=== PATIENT | female | born 1980 | race Caucasian/White ===

== ENCOUNTER 2021-07-01 10:39 | Inpatient (IN) | payer OTHER, MEDICAID ==
[2021-07-01] MEDS ORDERED: cefTRIAXone\\ROCEPHIN 2 GM VIAL ONE (11:58)
[2021-07-01] MEDS ORDERED: Azithromycin 500 MG VIAL ONE (11:58)
[2021-07-01] MEDS ORDERED: Ondansetron ODT 4 MG TAB SL PRN (12:00)
[2021-07-01] MEDS ORDERED: Ondansetron PF 4 MG/2 ML Vial IVP PRN (12:00)
[2021-07-01 13:03] LABS: #Lymphocytes 0.5 thou/uL (1.20-3.40); #Monocytes 0.2 thou/uL (0.11-0.59); #Neutrophils 2.7 thou/uL (1.40-6.50); %Eosinophils 0.1 % (0.0-10.0); %Lymphocytes 15.5 % (21.0-51.0); %Monocytes 4.9 % (0.0-10.0); %Neutrophils 78.6 % (42.0-75.0); Hemoglobin 12.7 g/dL (12.0-16.0); Mean Corpuscular HGB CONC 33.9 g/dL (32.0-36.0); Mean Corpuscular Hemoglobin 29.4 pg (27.0-31.0); Mean Corpuscular Volume 86.6 fL (78.0-98.0); Mean Platelet Volume 7.5 fL (7.4-10.4); Platelet Count 163 thou/uL (130-400); RBC Distribution Width 12.7 % (11.5-14.5); Red Blood Cell (RBC) Count 4.33 mill/uL (4.20-5.40); White Blood Cell (WBC) Count 3.4 thou/uL (4.8-10.8)
[2021-07-01 13:37] LABS: BHCG - Serum Negative (NEGATIVE); Pregs Control Background? CLEAR/WHITE (CLR/WHITE); Pregs Control Bar Appear? YES (CONTROL BAR)
[2021-07-01 13:56] LABS: ALT (SGPT) 18 U/L (8-55); AST (SGOT) 17 U/L (5-34); Albumin 3.2 g/dL (3.5-5.0); Alkaline Phosphatase 64 U/L (40-110); Anion Gap 10 mmol/L (10-20); BUN (Urea Nitrogen) 7 mg/dL (7.0-18.7); Bilirubin, Total 0.9 mg/dL (0.2-1.2); Calc. Creatinine Clearance 0 mL/min (70-130); Calcium 7.7 mg/dL (7.8-10.44); Carbon Dioxide 25 mmol/L (22-29); Chloride 107 mmol/L (98-107); Glucose 122 mg/dL (70-105); Lipase 21 U/L (8-78); Potassium 3.1 mmol/L (3.5-5.1); Protein, Total 6.2 g/dL (6.0-8.3); Sodium 139 mmol/L (136-145)
[2021-07-01 14:11] LABS: CK (CPK) Less than 18 U/L (29-168)
[2021-07-01] MEDS ORDERED: Potassium Chloride 20 MEQ TAB ONE (16:35)
[2021-07-01] MEDS ORDERED: Dexamethasone 10 MG in Sodium Chloride 0.9% 50 ML IVPB SCH (18:17)
[2021-07-01] MEDS ORDERED: Ketorolac Tromethamine 30 MG/ML VIAL IVP PRN (18:20)
[2021-07-01] MEDS ORDERED: Fentanyl 100 MCG/2 ML VIAL SLOW IVP PRN (18:20)
[2021-07-01] MEDS ORDERED: GUAIFENESIN SF SOLN 200 MG/10 ML UDCUP PO PRN (18:27)
[2021-07-01] MEDS ORDERED: Albuterol Sulfate 1.25 MG/3 ML NEB EZPAP PRN (18:27)
[2021-07-01] MEDS ORDERED: Dexamethasone 10 MG/ML VIAL SLOW IVP SCH (18:30)
[2021-07-01] MEDS ORDERED: Enoxaparin Sodium 40 MG/0.4 ML SYRINGE SC SCH (18:30)
[2021-07-01] MEDS ORDERED: Morphine 4 MG/ML VIAL SLOW IVP PRN (18:31)
[2021-07-01] MEDS ORDERED: Albuterol 200 PUFF (6.7GM INHALER) INH PRN (18:39)
[2021-07-01] MEDS: Sodium Chloride 0.9% 1,000 ML IV SCH (18:41)
[2021-07-01 19:38] VITALS: BMI 43.8
[2021-07-01] MEDS ORDERED: Pharmacy to Dose REMDESIVIR IVPB PRN (19:53)
[2021-07-01] MEDS: Acetaminophen 325 MG TAB PO PRN (22:09)
[2021-07-01] MEDS: Benzonatate 100 MG CAP PO PRN (22:09)
[2021-07-02] MEDS: Sodium Chloride 0.9% 1,000 ML IV SCH (00:54)
[2021-07-02] MEDS: Benzonatate 100 MG CAP PO PRN (05:18)
[2021-07-02] MEDS: Acetaminophen 325 MG TAB PO PRN (05:19)
[2021-07-02] MEDS ORDERED: FLU VACC QS2021-22(6MOS UP)/PF 60 MCG/0.5 ML SYRINGE IM ONE (09:00)
[2021-07-02] MEDS ORDERED: Enoxaparin Sodium 40 MG/0.4 ML SYRINGE SC SCH (09:00)
[2021-07-02] MEDS ORDERED: Pantoprazole 40 MG VIAL IVP SCH (09:00)
[2021-07-02] MEDS ORDERED: Albuterol 200 PUFF (6.7GM INHALER) INH PRN (09:03)
[2021-07-02 09:34] LABS: #Basophils 0.1 thou/uL (0.0-0.2); #Lymphocytes 0.7 thou/uL (1.20-3.40); #Monocytes 0.2 thou/uL (0.11-0.59); #Neutrophils 2.7 thou/uL (1.40-6.50); %Basophils 1.5 % (0.0-1.0); %Eosinophils 0.1 % (0.0-10.0); %Lymphocytes 19.8 % (21.0-51.0); %Monocytes 5.6 % (0.0-10.0); %Neutrophils 72.9 % (42.0-75.0); Mean Corpuscular HGB CONC 35.2 g/dL (32.0-36.0); Mean Corpuscular Hemoglobin 30.7 pg (27.0-31.0); Mean Corpuscular Volume 87.4 fL (78.0-98.0); Mean Platelet Volume 7.6 fL (7.4-10.4); Platelet Count 179 thou/uL (130-400); RBC Distribution Width 12.5 % (11.5-14.5); Red Blood Cell (RBC) Count 4.24 mill/uL (4.20-5.40); White Blood Cell (WBC) Count 3.7 thou/uL (4.8-10.8)
[2021-07-02 09:49] LABS: Phosphorus 2.2 mg/dL (2.3-4.7)
[2021-07-02] MEDS: Zinc Sulfate 220 MG CAP PO SCH (09:52)
[2021-07-02] MEDS: Multivit, Therapeutic 1 TAB PO SCH (09:52)
[2021-07-02] MEDS: Cholecalciferol 1,000 UNITS (25 MCG) TAB PO SCH (09:52)
[2021-07-02] MEDS: Ascorbic Acid 500 mg Chewable Tablet PO SCH (09:52)
[2021-07-02] MEDS: guaiFENesin ER 600 MG TAB PO SCH ×2 (09:53→21:32)
[2021-07-02] MEDS: Enoxaparin Sodium 40 MG/0.4 ML SYRINGE SC SCH ×2 (09:53→21:32)
[2021-07-02 09:54] LABS: ALT (SGPT) 16 U/L (8-55); AST (SGOT) 13 U/L (5-34); Albumin 3.2 g/dL (3.5-5.0); Alkaline Phosphatase 61 U/L (40-110); Anion Gap 13 mmol/L (10-20); BUN (Urea Nitrogen) 10 mg/dL (7.0-18.7); Bilirubin, Total 1.1 mg/dL (0.2-1.2); Calc. Creatinine Clearance 244 mL/min (70-130); Calcium 8.6 mg/dL (7.8-10.44); Carbon Dioxide 21 mmol/L (22-29); Chloride 107 mmol/L (98-107); Glucose 162 mg/dL (70-105); Protein, Total 6.2 g/dL (6.0-8.3); Sodium 138 mmol/L (136-145)
[2021-07-02] MEDS: Albuterol 200 PUFF (6.7GM INHALER) INH SCH ×4 (09:54→22:15)
[2021-07-02 10:07] LABS: Potassium 2.9 mmol/L (3.5-5.1)
[2021-07-02] MEDS ORDERED: Potassium Phosphate 30 MMOL in Sodium Chloride 0.9% 500 ML IVPB SCH (10:30)
[2021-07-02] MEDS ORDERED: Potassium Phosphate 30 MMOL in Sodium Chloride 0.9% 250 ML 250 ML IVPB SCH (10:30)
[2021-07-02] MEDS ORDERED: Potassium Chloride 20 MEQ TAB PO SCH ×2 (10:30→21:00)
[2021-07-02] MEDS: cefTRIAXone\\ROCEPHIN 1 GM in Sodium Chloride 0.9% 100 ML IVPB SCH (11:04)
[2021-07-02] MEDS: Dexamethasone 10 MG/ML VIAL SLOW IVP SCH (11:05)
[2021-07-02] MEDS: Azithromycin 500 MG in Sodium Chloride 0.9% 250 ML 250 ML IVPB SCH (12:43)
[2021-07-02 15:46] LABS: Troponin I Less than 0.010 ng/mL (< 0.028)
[2021-07-02] MEDS ORDERED: Magnesium 2 GM/50 ML 2 GM in Premix Bag 1 BAG IVPB SCH (21:00)
[2021-07-03] MEDS ORDERED: Baclofen 10 MG TAB PO SCH (02:14)
[2021-07-03] MEDS: Albuterol 200 PUFF (6.7GM INHALER) INH SCH ×6 (02:29→22:32)
[2021-07-03 06:14] LABS: #Lymphocytes 1.7 thou/uL (1.20-3.40); #Monocytes 0.4 thou/uL (0.11-0.59); %Eosinophils 0.1 % (0.0-10.0); %Monocytes 8.6 % (0.0-10.0); %Neutrophils 58.3 % (42.0-75.0); Hemoglobin 11.8 g/dL (12.0-16.0); Mean Corpuscular HGB CONC 34.8 g/dL (32.0-36.0); Mean Corpuscular Hemoglobin 29.7 pg (27.0-31.0); Mean Corpuscular Volume 85.4 fL (78.0-98.0); Mean Platelet Volume 7.3 fL (7.4-10.4); Platelet Count 220 thou/uL (130-400); RBC Distribution Width 12.5 % (11.5-14.5); Red Blood Cell (RBC) Count 3.99 mill/uL (4.20-5.40); White Blood Cell (WBC) Count 5.1 thou/uL (4.8-10.8)
[2021-07-03 06:38] LABS: ALT (SGPT) 14 U/L (8-55); AST (SGOT) 10 U/L (5-34); Albumin 3.2 g/dL (3.5-5.0); Alkaline Phosphatase 52 U/L (40-110); Anion Gap 12 mmol/L (10-20); BUN (Urea Nitrogen) 11 mg/dL (7.0-18.7); Bilirubin, Total 0.8 mg/dL (0.2-1.2); CRP (Inflammatory) 2.07 mg/dL (= or < 0.5); Calc. Creatinine Clearance 244 mL/min (70-130); Calcium 8.5 mg/dL (7.8-10.44); Carbon Dioxide 24 mmol/L (22-29); Chloride 108 mmol/L (98-107); Globulin 2.5 g/dL (2.4-3.5); Glucose 109 mg/dL (70-105); Magnesium 2.2 mg/dL (1.6-2.6); Phosphorus 4.1 mg/dL (2.3-4.7); Potassium 3.2 mmol/L (3.5-5.1); Protein, Total 5.7 g/dL (6.0-8.3); Sodium 141 mmol/L (136-145)
[2021-07-03] MEDS ORDERED: K-Phos Neutral 250 MG TAB PO SCH (08:15)
[2021-07-03] MEDS: Zinc Sulfate 220 MG CAP PO SCH (08:38)
[2021-07-03] MEDS: Multivit, Therapeutic 1 TAB PO SCH (08:38)
[2021-07-03] MEDS: Ascorbic Acid 500 mg Chewable Tablet PO SCH (08:39)
[2021-07-03] MEDS: Potassium Chloride 20 MEQ TAB PO SCH ×3 (08:39→17:42)
[2021-07-03] MEDS: guaiFENesin ER 600 MG TAB PO SCH ×2 (08:40→20:59)
[2021-07-03] MEDS: Cholecalciferol 1,000 UNITS (25 MCG) TAB PO SCH (08:40)
[2021-07-03] MEDS: Enoxaparin Sodium 40 MG/0.4 ML SYRINGE SC SCH ×2 (08:40→21:00)
[2021-07-03] MEDS ORDERED: BARICITINIB 2 MG TAB PO SCH (09:00)
[2021-07-03] MEDS: Acetaminophen 325 MG TAB PO PRN (11:05)
[2021-07-03] MEDS: K-Phos Neutral 250 MG TAB PO SCH ×2 (11:06→17:42)
[2021-07-03] MEDS: Dexamethasone 10 MG/ML VIAL SLOW IVP SCH (11:13)
[2021-07-03] MEDS: cefTRIAXone\\ROCEPHIN 1 GM in Sodium Chloride 0.9% 100 ML IVPB SCH (11:13)
[2021-07-03] MEDS: Azithromycin 500 MG in Sodium Chloride 0.9% 250 ML 250 ML IVPB SCH (12:31)
[2021-07-03] MEDS ORDERED: tiZANidine HCl 4 MG TAB PO PRN (18:07)
[2021-07-04] MEDS: Albuterol 200 PUFF (6.7GM INHALER) INH SCH ×3 (02:09→10:16)
[2021-07-04 06:54] LABS: #Lymphocytes 1.9 thou/uL (1.20-3.40); #Monocytes 0.5 thou/uL (0.11-0.59); %Eosinophils 0.4 % (0.0-10.0); %Lymphocytes 34.7 % (21.0-51.0); %Monocytes 9.9 % (0.0-10.0); Hemoglobin 12.8 g/dL (12.0-16.0); Mean Corpuscular Hemoglobin 30.4 pg (27.0-31.0); Mean Corpuscular Volume 86.9 fL (78.0-98.0); Mean Platelet Volume 7.2 fL (7.4-10.4); Platelet Count 244 thou/uL (130-400); RBC Distribution Width 12.5 % (11.5-14.5); Red Blood Cell (RBC) Count 4.22 mill/uL (4.20-5.40); White Blood Cell (WBC) Count 5.5 thou/uL (4.8-10.8)
[2021-07-04] MEDS: Acetaminophen 325 MG TAB PO PRN (06:59)
[2021-07-04 07:17] LABS: Anion Gap 15 mmol/L (10-20); BUN (Urea Nitrogen) 11 mg/dL (7.0-18.7); CRP (Inflammatory) 0.93 mg/dL (= or < 0.5); Calc. Creatinine Clearance 223 mL/min (70-130); Carbon Dioxide 24 mmol/L (22-29); Chloride 107 mmol/L (98-107); Glucose 97 mg/dL (70-105); Potassium 3.6 mmol/L (3.5-5.1); Sodium 142 mmol/L (136-145)
[2021-07-04] MEDS: Ascorbic Acid 500 mg Chewable Tablet PO SCH (07:55)
[2021-07-04] MEDS: Enoxaparin Sodium 40 MG/0.4 ML SYRINGE SC SCH (07:56)
[2021-07-04] MEDS: Multivit, Therapeutic 1 TAB PO SCH (07:56)
[2021-07-04] MEDS: guaiFENesin ER 600 MG TAB PO SCH (07:56)
[2021-07-04] MEDS: Zinc Sulfate 220 MG CAP PO SCH (07:56)
[2021-07-04] MEDS: Cholecalciferol 1,000 UNITS (25 MCG) TAB PO SCH (07:56)
[2021-07-04] MEDS ORDERED: Potassium Chloride 20 MEQ TAB PO SCH (08:00)
[2021-07-04 08:27] VITALS: BP 161/75; TEMP 97.7
[2021-07-04] MEDS ORDERED: Lisinopril 10 MG TAB PO SCH (09:00)
[2021-07-04] MEDS ORDERED: Amlodipine 5 MG TAB PO SCH (09:00)
[2021-07-04] MEDS: Azithromycin 500 MG in Sodium Chloride 0.9% 250 ML 250 ML IVPB SCH (11:41)
[2021-07-04] MEDS: Dexamethasone 10 MG/ML VIAL SLOW IVP SCH (11:41)
[2021-07-04] MEDS: cefTRIAXone\\ROCEPHIN 1 GM in Sodium Chloride 0.9% 100 ML IVPB SCH (13:04)
== END 2021-07-04 15:10 | disposition home or self-care (01) | DRG 177 ==
LOC: ERS 10:39 → ERHOLD 13:23 → T4-A 17:05 → 2SW 07-02 19:41
PROVIDERS: ADMIT Internal Medicine; ATTEND Internal Medicine
PROC: 8E0ZXY6 Isolation (ICD-10-PCS; principal; 2021-07-01)
PROC: 3E0333Z Introduction of Anti-inflammatory into Peripheral Vein, Percutaneous Approach (ICD-10-PCS; 2021-07-01)
PROC: XW0DXM6 Introduction of Baricitinib into Mouth and Pharynx, External Approach, New Technology Group 6 (ICD-10-PCS; 2021-07-03)
DX: U07.1 COVID-19 (principal); J12.82 Pneumonia due to coronavirus disease 2019; J96.01 Acute respiratory failure with hypoxia; Z68.41 Body mass index [BMI] 40.0-44.9, adult; J45.909 Unspecified asthma, uncomplicated; I10 Essential (primary) hypertension; K21.9 Gastro-esophageal reflux disease without esophagitis; F41.9 Anxiety disorder, unspecified; E87.6 Hypokalemia; E83.42 Hypomagnesemia; R07.89 Other chest pain; E66.01 Morbid (severe) obesity due to excess calories; E83.39 Other disorders of phosphorus metabolism; F32.A Depression, unspecified; Z88.0 Allergy status to penicillin; Z88.8 Allergy status to other drugs, medicaments and biological substances; Z88.2 Allergy status to sulfonamides; Z90.710 Acquired absence of both cervix and uterus; Z90.49 Acquired absence of other specified parts of digestive tract; Z79.899 Other long term (current) drug therapy
CPT/HCPCS: 36415; 71045; 80048; 80053; 82550; 83690; 83735; 83880; 84100; 84484; 84703; 85025; 85379; 86140; 93005; 93010; 96365; 96367; C9113; J0456; J0696; J1100; J1650; J1885; J3475; J3490; J7030; J7050